=== PATIENT | female | born 1980 | race Caucasian/White ===

== ENCOUNTER 2016-12-02 16:18 | Inpatient (IN) | payer BC ==
[~2016-12-02] VITALS: Ht 167.6 cm; Wt 75.9 kg
[~2016-12-02 16:18] MED LIST: MTR600X PO; PRENTAB26 PO
--- NOTE | 2016-12-02 16:46 | Progress Note ---
Progress Note Date of Service Dec 02, 2016. Progress Note Outpatient Note 36 F [id number] at 37.3 weeks with early onset contractions today. Seen in office and sent here for evaluation. Cervix unchanged at 1.5/50/-3/posterior. urine shows moderate ketones. GBS is negative. FHT Cat 1. Will hydrate orally.
[2016-12-02 18:04] VITALS: Ht 167.6 cm; Wt 75.9 kg
--- NOTE | 2016-12-02 19:13 | Progress Note ---
Progress Note Date of Service Dec 02, 2016. Progress Note No change in cervix. Still 1.5/50/-3/vertex/posterior FHT Cat 1. irregular ctx. Will d/c home not in active labor
[2016-12-02] MEDS ORDERED: LACTATED RINGER'S 1000ML 1,000 ML IV PRN ×2 (21:44→23:58)
[2016-12-02] MEDS ORDERED: LACTATED RINGER'S 1000ML 1,000 ML IV SCH (23:58)
[2016-12-03] MEDS ORDERED: EpHEDrine SULFATE INJ 50 MG/ML AMP ONE (00:12)
[2016-12-03] MEDS ORDERED: BUPIVACAINE 0.25% 30 ML VIAL ONE (00:12)
[2016-12-03] MEDS ORDERED: FENTANYL CITRATE INJ 50 MCG/1 ML 2 ML VIAL ONE (00:13)
[2016-12-03] MEDS ORDERED: FENTANYL 2MCG/ML ROPIV 1.25MG/ML 100ML BAG EPI ONE (00:13)
--- NOTE | 2016-12-03 00:23 | Progress Note ---
Progress Note Date of Service Dec 03, 2016. Progress Note Admit Note 36 F [id number] at 37.4 weeks admitted with onset of labor and SROM clear fluid. GBS negative. FHT Cat 1. Will admit and fluid load for epidural. Anticipate vaginal delivery.
[2016-12-03 00:26] LABS: HEMATOCRIT 33.4 % (37-47); MEAN CORPUSCULAR HEMOGLOBIN 30.9 pg (25-34); MEAN CORPUSCULAR HGB CONC 33.2 g/dl (32-36); MEAN PLATELET VOLUME 10.1 fL (7.4-10.4); PLATELET COUNT 212 K/uL (130-400); RED BLOOD COUNT 3.59 M/uL (4.2-5.4); WHITE BLOOD COUNT 8.55 K/uL (4.8-10.8)
[2016-12-03] MEDS ORDERED: LACTATED RINGER'S 1000ML 500 ML IV PRN (01:08)
[2016-12-03] MEDS ORDERED: NALOXONE HCL INJ 1 MG in SODIUM CHLORIDE 0.9% 1000ML 1,000 ML IV PRN (01:08)
[2016-12-03] MEDS ORDERED: FENTANYL 2MCG/ML ROPIV 1.25MG/ML 100ML BAG EPI PRN (01:15)
[2016-12-03] MEDS ORDERED: NALOXONE HCL INJ 0.4 MG/1 ML VIAL/CARP IV PRN (01:15)
[2016-12-03] MEDS ORDERED: ONDANSETRON INJ 2 MG/ML 2 ML VIAL IV PRN (01:15)
[2016-12-03] MEDS ORDERED: NALBUPHINE HCL INJ 10 MG/ML AMP IV PRN (01:15)
[2016-12-03] MEDS ORDERED: DiphenhydrAMINE HCL 50 MG/ML VIAL IV PRN (01:15)
[2016-12-03] MEDS ORDERED: EpHEDrine SULFATE INJ 50 MG/ML AMP IV PRN (01:15)
[2016-12-03] MEDS ORDERED: OXYTOCIN 30 UNITS/500ML NSS IV ONE (03:59)
[2016-12-03] MEDS ORDERED: LACTATED RINGER'S 1000ML 1,000 ML IV SCH (04:09)
--- NOTE | 2016-12-03 04:09 | Anesthesia Procedure Note ---
Anesthesia Epidural Removal Nt Date & Time Dec 03, 2016 at 04:09 Vital Signs Pain Intensity: 10.0 Notes Mental Status: alert / awake / arousable, participated in evaluation Nausea / Vomiting: adequately controlled Pain: adequately controlled Airway Patency, RR, SpO2: stable & adequate BP & HR: stable & adequate Hydration State: stable & adequate Neuraxial Anesthesia: was administered Anesthetic Complications: no major complications apparent, pt satisfied with anesthetic care Epidural: removed without complications, with tip intact
[2016-12-03] MEDS ORDERED: BUTORPHANOL TARTRATE 1 MG/ML VIAL ONE (04:12)
[2016-12-03] MEDS ORDERED: BENZOCAINE 20% AER SPR 82.5 GM CAN EXT PRN (04:15)
[2016-12-03] MEDS ORDERED: LANOLIN OINT EXT PRN ×2 (04:15)
[2016-12-03] MEDS ORDERED: DIPHTHERIA/TETANUS/PERTUSSIS 0.5 ML SYR/VIAL IM. ONE (04:15)
[2016-12-03] MEDS ORDERED: ACETAMINOPHEN 325 MG TAB PO PRN (04:15)
[2016-12-03] MEDS ORDERED: SUPERCREAM 0.870 % 15GM JAR EXT PRN (04:15)
[2016-12-03] MEDS ORDERED: BUTORPHANOL TARTRATE 1 MG/ML VIAL IV PRN (04:15)
[2016-12-03] MEDS ORDERED: ACETAMINOPHEN/CODEINE 300/30MG TAB PO PRN (04:15)
[2016-12-03] MEDS ORDERED: OXYCODONE/ACETAMINOPHEN 5-325 TAB PO PRN (04:15)
[2016-12-03] MEDS ORDERED: VARICELLA VIRUS VACCINE LIVE 1 VIAL SQ. ONE (04:15)
[2016-12-03] MEDS ORDERED: OXYTOCIN 30 UNITS/500ML NSS IV PRN (04:15)
[2016-12-03] MEDS ORDERED: HYDROCORTISONE ACETATE 25 MG SUPP PR PRN (04:15)
[2016-12-03] MEDS ORDERED: MEASLES, MUMPS & RUBELLA VIRUS VIAL SQ. ONE (04:15)
--- NOTE | 2016-12-03 04:18 | Vaginal Delivery Summary ---
Vaginal Delivery Summary Delivery note Live male over intact perineum RAMONE with tight nuchal cord x2 reduced at delivery. Apgars 4/9 weight 6-12. Cords blood and segment of cord obtained for blood gas. Placenta delivered spontaneously and intact. No tears. EBL 250 ml. Mom stable and baby to nursery for evaluation.
[2016-12-03] MEDS: ACETAMINOPHEN/CODEINE 300/30MG TAB PO PRN ×3 (06:37→18:08)
--- NOTE | 2016-12-03 07:28 | DIAGNOSTIC IMAGING REPORT ---
BIO PROF W/O NST-SINGLE CLINICAL HISTORY: DECREASED MOVEMENT/ NONREACTIVE NST COMPARISON STUDY: ultrasound 11/07/2011. FINDINGS: Transabdominal scanning of the fetus was performed. breathing was demonstrated. However, movement and tone were not demonstrated during the examination. Amniotic fluid index is 13.7 cm. heart rate was 162 bpm. The fetus is in a cephalic presentation. There is an anterior placenta. No evidence for subchorionic hematoma. anatomical survey was not performed for this examination. IMPRESSION: Biophysical profile score is 4 out of 8. heart rate was 162 bpm. Electronically signed by: Shayan Wallace M.D. 12/03/2016 7:26 AM Dictated Date/Time: 12/03/2016 7:24 AM
[2016-12-03] MEDS: DOCUSATE SODIUM 100 MG CAP PO SCH ×2 (09:05→20:00)
[2016-12-03] MEDS: FERROUS SULFATE 325 MG TAB PO SCH (09:05)
[2016-12-03] MEDS: IBUPROFEN 600 MG TAB PO PRN ×2 (09:05→14:51)
[2016-12-03 11:05] VITALS: BP 116/57; PULSE 64; TEMP 36.7
[2016-12-03 15:20] VITALS: BP 109/70; PULSE 67; TEMP 36.5; O2SAT 99
[2016-12-03 19:50] VITALS: BP 113/63; PULSE 76; TEMP 36.4
[2016-12-04] MEDS: IBUPROFEN 600 MG TAB PO PRN ×2 (00:49→07:45)
[2016-12-04 01:05] VITALS: BP 113/73; PULSE 80; TEMP 36.7; O2SAT 99
[2016-12-04 05:15] VITALS: BP 113/73; PULSE 80; TEMP 36.9
[2016-12-04 05:30] LABS: HEMATOCRIT 27.6 % (37-47)
[2016-12-04 07:37] VITALS: BP_SYST 111; BP_SYST 135; BP_DIAS 70; BP_DIAS 82; PULSE 74; TEMP 36.8; O2SAT 97
--- NOTE | 2016-12-04 07:48 | OB/GYN Progress Note ---
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 Subjective conversation w/ patient, physical exam Ambulation: ambulating normally Voiding: no voiding problems Passing Gas: Yes Diet Tolerance: Regular Diet Lochia: Moderate Feeding Type: Breast Feeding Review of Systems Constitutional: No fever, No chills, No sweats, No weight loss, No weakness, No fatigue, No problem reported Respiratory: No cough, No sputum, No wheezing, No shortness of breath, No dyspnea on exertion, No dyspnea at rest, No hemoptysis, No problem reported Cardiac: No chest pain, No orthopnea, No PND, No edema, No claudication, No palpitations, No problem reported Breast: No see HPI, No breast lump, No change in shape, No nipple discharge, No breast pain, No problem reported Abdomen: No pain, No nausea, No vomiting, No diarrhea, No constipation, No GI bleeding, No problem reported Female : No see HPI, No dysuria, No urinary frequency, No hematuria, No incontinence, No abnormal vaginal bleeding, No vaginal discharge, No problem reported Objective Vital Signs Date Time Temp Pulse Resp B/P (MAP) Pulse Ox O2 Delivery O2 Flow Rate FiO2 12/04/16 07:37 36.8 74 20 135/82 (99) 97 Room Air 12/04/16 05:15 36.9 80 20 113/73 (86) Room Air 12/04/16 01:05 36.7 80 18 113/73 (86) Room Air 12/04/16 01:05 99 Room Air 12/03/16 19:50 36.4 76 20 113/63 (80) Room Air 12/03/16 15:20 36.5 67 16 109/70 (83) 99 Room Air 12/03/16 15:20 99 Room Air 12/03/16 11:05 36.7 64 20 116/57 (76) Physical Exam General Appearance: WELL-APPEARING, WD/WN, NO APPARENT DISTRESS Respiratory/Chest: chest non-tender, lungs clear, normal breath sounds, no respiratory distress, no accessory muscle use Cardiovascular: regular rate, rhythm, no edema, no gallop, no JVD, no murmur Abdomen: normal bowel sounds, non tender, soft, no organomegaly, no pulsatile mass Fundus: Firm Extremities: normal range of motion, non-tender, normal inspection, no pedal edema, no calf tenderness Laboratory Results Last 24 Hours Test 12/04/16 05:14 Hemoglobin 9.2 g/dL Hematocrit 27.6 % Assessment and Plan Day Number: 1 Continue Routine Care: VD Day #1 pt doing well No complaints anticipate disch tomorrow
--- NOTE | 2016-12-04 08:49 | OB/GYN Progress Note ---
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 Subjective conversation w/ patient, physical exam Ambulation: ambulating normally Voiding: no voiding problems Passing Gas: Yes Diet Tolerance: Regular Diet Lochia: Moderate Feeding Type: Breast Feeding Review of Systems Constitutional: No fever, No chills, No sweats, No weight loss, No weakness, No fatigue, No problem reported Respiratory: No cough, No sputum, No wheezing, No shortness of breath, No dyspnea on exertion, No dyspnea at rest, No hemoptysis, No problem reported Cardiac: No chest pain, No orthopnea, No PND, No edema, No claudication, No palpitations, No problem reported Breast: No see HPI, No breast lump, No change in shape, No nipple discharge, No breast pain, No problem reported Abdomen: No pain, No nausea, No vomiting, No diarrhea, No constipation, No GI bleeding, No problem reported Female : No see HPI, No dysuria, No urinary frequency, No hematuria, No incontinence, No abnormal vaginal bleeding, No vaginal discharge, No problem reported Objective Vital Signs Date Time Temp Pulse Resp B/P (MAP) Pulse Ox O2 Delivery O2 Flow Rate FiO2 12/04/16 07:45 Room Air 12/04/16 07:37 36.8 74 20 135/82 (99) 97 Room Air 12/04/16 05:15 36.9 80 20 113/73 (86) Room Air 12/04/16 01:05 36.7 80 18 113/73 (86) Room Air 12/04/16 01:05 99 Room Air 12/03/16 19:50 36.4 76 20 113/63 (80) Room Air 12/03/16 15:20 36.5 67 16 109/70 (83) 99 Room Air 12/03/16 15:20 99 Room Air 12/03/16 11:05 36.7 64 20 116/57 (76) Physical Exam General Appearance: WELL-APPEARING, WD/WN, NO APPARENT DISTRESS, uncomfortable Respiratory/Chest: chest non-tender, lungs clear, normal breath sounds, no respiratory distress, no accessory muscle use Cardiovascular: regular rate, rhythm, no edema, no gallop, no JVD, no murmur Abdomen: normal bowel sounds, non tender, soft, no organomegaly, no pulsatile mass Fundus: Firm Extremities: normal range of motion, non-tender, normal inspection, no pedal edema, no calf tenderness Laboratory Results Last 24 Hours Test 12/04/16 05:14 Hemoglobin 9.2 g/dL Hematocrit 27.6 % Assessment and Plan Day Number: 1 Continue Routine Care: VD day #1 Pt doing well is been transfered to [facility] Mom wishes to be discharged today
[2016-12-04] MEDS ORDERED: MTR600X PO (08:50)
--- NOTE | 2016-12-04 08:51 | Discharge Instructions ---
Discharge Instructions Date of Service Dec 04, 2016. Admission Reason for Admission: LABOR Discharge Discharge Diagnosis / Problem: Discharge Goals Goal(s): Routine recovery after delivery Activity Recommendations Activity Limitations: resume your previous activity . Instructions / Follow-Up Instructions / Follow-Up ACTIVITY RECOMMENDATIONS: * Gradual return to full activity over the next 2-3 weeks. * No lifting - nothing heavier than baby over the next 2-3 weeks. * Do not engage in vigorous exercise, sexual activity or sports until cleared by your physician. * Do not drive or operate any motorized equipment until cleared by your physician. * You may shower/bathe daily. BREAST CARE: If you are not breast feeding: * Wear a supportive bra 24 hours a day for one to two weeks. * Avoid stimulating your breasts and nipples as much as possible during the first few weeks after delivery. * When taking a shower, have the warm water hit your back, not breasts. * When your breasts feel full, apply ice packs. Usually three to four times a day helps ease the discomfort. * Take a mild pain medication (Tylenol/Motrin) when you are uncomfortable. If breast feeding: * Use breast milk to lubricate nipples. Lansinoh cream may be used for sore nipples. You do not need to remove cream prior to breast feeding. If using a different brand of cream, check the label for directions regarding removal of cream prior to nursing. * Wear a supportive bra. * If having problems with breasts or breast feeding, call a hospice consultant or your health care provider. EPISIOTOMY CARE: After delivery, if you have an episiotomy (stitches), the following steps will ease discomfort and aid healing. * For the first 24 hours after delivery, place ice packs next to your episiotomy to help reduce swelling. * After the first 24 hour-period, sitz baths, either portable or in the tub, are suggested. A shower with a shower arm sprayed over the episiotomy may be comforting. * Nciole care should be done after each voiding and bowel movement. Squirt warm water from a plastic bottle over the perineum (region of the body between the anus and urinary opening) and pat dry. * Use Dermoplast to ease discomfort. Shake container. [place] directly over the episiotomy. * Place a Tucks on a clean sanitary pad next to your episiotomy. OVER THE COUNTER MEDICATION: * For discomfort or pain, you may use Acetaminophen (Tylenol), Ibuprofen (Advil ), or Naproxen (Aleve) following the package directions. * For constipation you may use Colace following the package directions. SPECIAL CARE INSTRUCTIONS: When you are discharged from the hospital, it is important for you to follow the instructions listed below: * During the first week at home, you should be able to care for yourself and your baby. In addition, the usual light household activities are encouraged. * Limit your activities to the way you feel. Do not try to clean the house or move furniture. Be sensible. * If you actively engage in sports and have done so up until the time of your delivery, you may resume these activities as soon as you feel able. This may take up to one month or even longer. Use good judgment. * Continue to take your vitamins for at least six weeks after the of your baby. * Your diet need not be limited unless you were on a special diet before your delivery. Breast-feeding mothers need around 2500 calories per day and at least 64-80 ounces of fluid per day (8 to 10 glasses). * You should eat foods from the four major food groups. Crash diets or fad diets are to be avoided. Eating lean meats, fresh fruits and vegetables, low-fat dairy products, high fiber foods and a regular exercise program, will help you get back to your pre- weight without putting your health at risk. * Constipation is sometimes a problem after delivery. Take a mild laxative as needed. If breast feeding, Milk of Magnesia is acceptable to use. You may use a suppository or Fleets enema if no episiotomy. * A daily shower or tub bath is suggested. Be sure to thoroughly and gently dry the perineum. * A bloody vaginal discharge will usually continue until around four weeks post . A small amount of bleeding may continue for as long as six weeks. Vaginal discharge changes from the bright red bleeding after delivery to pink then brownish and finally yellowish-pink before becoming white and disappearing. * Bleeding may increase with activity. Your first period may come in 4-8 weeks. If you are breast feeding, your period may be delayed even longer. * [place] (sex) can begin whenever both you and your partner feel comfortable and do not have any form of genital infection. It is recommended that you wait until after your return appointment and discuss with your physician. If you have questions, please talk to your health care practitioner. A condom should be used to prevent infection and . * Foreplay, gentle intercourse and lubrication is very important the first several times to prevent pain. A water-based lubricant such as K-Y jelly or Astroglide may be used. * Tampons may be used six weeks after delivery. * Douching should be avoided for 6 weeks after delivery. * If you have RH negative blood and your baby is RH positive, you will receive RHOGAM by injection prior to discharge. The nurse will give you a card to keep with you that has the date and place that you received RHOGAM after delivery. * During your care, you had a Rubella screen done to check for the presence of rubella antibodies in your blood. If your test was negative, you will receive a Rubella vaccine prior to discharge. This vaccine may cause a fever, soreness at the injection site and flu-like symptoms. If these symptoms persist, notify your health care practitioner. is not advised for three months after a Rubella vaccine. There is a higher chance of having a baby with defects if conceived within three months of getting the vaccine. * If you were discharged 24 hours from delivery or before 48 hours: Visiting nurses will come to your home 48 hours after discharge to assess you and your baby. The visiting nurse will meet with you while you are in the hospital to arrange a time and get directions to your home. * Verbalizes understanding of car seat law as reviewed with patient nursing. * Car Seat hand-out given and reviewed with patient by nursing. * Shaken baby information reviewed with patient by nursing. Call you doctor if: * Heavy bleeding (saturating several pads an hour) or passing clots the size of your fist. * A fever >101 degrees F (38.3 degrees C) on two occasions four hours apart and/or chills. * Unusual pain in the pelvic or vaginal areas. * "Baby Blues" lasting longer than two weeks. If you have any questions or concerns, call your health care practitioner at . FOLLOW-UP VISIT: * Please call the office at to schedule a 6 week examination. It is important you keep this appointment. * It is important for you to make arrangements for either yearly or twice yearly check-ups thereafter. Current Hospital Diet Patient's current hospital diet: Regular OB Diet Discharge Diet Recommended Diet: Regular Diet Pending Studies Studies pending at discharge: no Medical Emergencies . Who to Call and When: Medical Emergencies: If at any time you feel your situation is an emergency, please call 911 immediately. . Non-Emergent Contact Non-Emergency issues call your: Specialist . . "Provider Documentation" section prepared by Jens Jensen. . VTE Core Measure Inpt VTE Proph given/why not?: Treatment not indicated
[2016-12-04] MEDS: DOCUSATE SODIUM 100 MG CAP PO SCH (09:05)
[2016-12-04] MEDS: FERROUS SULFATE 325 MG TAB PO SCH (09:05)
[2016-12-04 11:00] VITALS: BP_DIAS 82; PULSE 74; TEMP 36.8
[2016-12-04] MEDS ORDERED: BISACODYL 5 MG TABEC PO SCH (20:00)
[2016-12-05] MEDS ORDERED: BISACODYL 10 MG SUPP PR PRN (07:00)
[2016-12-09 10:22] LABS: HERPES SIMPLEX CULT SOURCE OTHER-MOUTH; HERPES SIMPLEX VIRUS CULT NOT ISOLATED (NOT ISOLATED)
== END 2016-12-04 12:00 | disposition home or self-care (01) | DRG 775 ==
LOC: C.LD 16:18 → C.OPB 16:18 → C.LD 12-03 → C.OPB 12-03 → C.OBG 12-03 12:02
PROVIDERS: ADMIT Obstetrics & Gynecology; ATTEND Obstetrics & Gynecology
PROC: 10E0XZZ Delivery of Products of Conception, External Approach (ICD-10-PCS; principal; 2016-12-03)
DX: O69.1XX0 Labor and delivery complicated by cord around neck, with compression, not applicable or unspecified (principal); Z37.0 Single live birth; Z3A.37 37 weeks gestation of pregnancy

== ENCOUNTER 2019-11-23 11:22 | Inpatient (IN) ==
[2019-11-23] MEDS ORDERED: OXYTOCIN 30 UNITS/500 ML BAG IV PRN ×2 (23:11)
--- NOTE | 2019-11-23 23:28 | History & Physical Report ---
Date of Service November 23, 2019 Assessment & Plan (1) Supervision of elderly multigravida: Admit, will start pitocin for regular ctx pattern. OK for epidural. Admission and Anticipated Discharge Date Admission Date: November 23, 2019 History of Present Illness Chief Complaint: contractions Primary Care Provider: Jian Jerry DO 38yo @ 41 10/08, presents with contractions. Q 2-8 min. No ROM, no bleeding. + movement. complicated by AMA, hypothyroidism, Rh negative, previous child with CP (had been scheduled for elective induction and she decided to cancel). Allergies Allergy/AdvReac Type Severity Reaction Status Date / Time cat dander Allergy Mild HIVES Verified 11/23/19 22:46 ragweed pollen Allergy Mild HIVES Verified 11/23/19 22:46 pollen extracts Allergy Unknown HIVES Verified 11/23/19 22:46 Home Medications Home Medications Medication Instructions Recorded Confirmed Type levothyroxine 75 mcg tablet 75 mcg PO DAILY 04/20/19 11/23/19 History prenat.vits,carlos eduardo,[id number] 1 tab PO DAILY 04/20/19 11/23/19 History magnesium 250 mg PO DAILY 11/23/19 11/23/19 History Patient History Medical History Jesica's thyroiditis Stable History of anesthesia complications Patient reports that she has had 4 previous epidurals and only one worked: Labor anesthesia: 12/04/16: CSE at L3-L4 at [facility] Labor anesthesia: 11/06/14: Epidural at L3-L4 at [facility] Labor anesthesia: 12/09/12: CSE at L3-L4at [facility] Surgical History S/P appendectomy S/P wisdom tooth extraction Family History Grandmother (Maternal) No problems noted. Grandfather (Maternal) Diabetes Grandmother (Paternal) Diabetes Grandfather (Paternal) Diabetes Social History Smoking Status: Never smoker Hx Alcohol Use: No Hx Substance Use: No Preferred Language: [place] Communication Ability: Effective Data Developer Required: No Beliefs That Will Affect Care: None marital status: marital status details: Beto Cobos (38) [phone] Current Living Situation: Spouse and Family Current Living Situation Comment: lives with spouse and children, no pets. 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 [employer] Other Information That Helps Us Care for You: No Feels Safe at Home: Yes Safety Concerns: Feels Safe At This Time Review of Systems All systems reviewed & are unremarkable except as noted in HPI & below Physical Exam Physical Exam: FHT Cat 1 [place] Q 2-6 SVE 1-2/90/-2 Constitutional: WD/WN, vitals as above Respiratory: normal respiratory effort, lungs clear to auscultation no respiratory distress Cardiovascular: Rate/Rhythm: regular rate and regular rhythm Gastrointestinal (Abdomen): Inspection/Auscultation: abdomen normal to inspection Percussion/Palpation: abdomen soft; abdomen nontender Gravid. No s/s chorio or abruption. Skin: no rashes, warm and dry Psychiatric: A+Ox3, euthymic affect Results & Data ([facility]) Vital Signs (Past 12 Hours) Vital Signs Pulse BP 11/23/19 22:43 77 127/86 Coding Level of Care Code None Diagnoses Supervision of elderly multigravida O09.529
[2019-11-23 23:41] LABS: Hematocrit (blood only) 36.8 % (37-47); Hemoglobin 12.9 g/dL (12.0-16.0); Mean Corpuscular Hemoglobin 33.1 pg (25-34); Mean Corpuscular Volume 94.4 fL (80-100); Mean Platelet Volume 11.1 fL (7.4-10.4); Platelet Count 177 K/uL (130-400); RDW Coefficient of Variation 11.9 % (11.5-14.5); RDW Standard Deviation 40.2 fL (36.4-46.3); White Blood Count 7.21 K/uL (4.8-10.8)
[2019-11-23 23:42] LABS: Mean Corpuscular Hgb Conc 35.1 g/dL (32-36)
[2019-11-23] MEDS: LACTATED RINGER'S 1,000 ML IV PRN (23:43)
--- NOTE | 2019-11-23 23:45 | Anesthesiology Consultation ---
Date of Service November 23, 2019 Assessment & Plan (1) Encounter for pre-operative examination: Chart Review Chart Review: Patient NOT seen in Pre Admission Testing and Acceptable Risk for Labor Epidural Consults Requested none ASA ASA2 Proposed Anesthesia Anesthesia Type: Labor Epidural Risk / Benefits Reviewed With: PT / POA / Parent / Guardian, Accepts Plan and Informed Consent Obtained History Height/Weight Height: 5 ft 6 in Weight: 75.75 kg Allergies Allergy/AdvReac Type Severity Reaction Status Date / Time cat dander Allergy Mild HIVES Verified 11/23/19 22:46 ragweed pollen Allergy Mild HIVES Verified 11/23/19 22:46 pollen extracts Allergy Unknown HIVES Verified 11/23/19 22:46 Medications Home Medications Medication Instructions Recorded Confirmed Last Taken levothyroxine 75 mcg tablet 75 mcg PO DAILY 04/20/19 11/23/19 11/23/19 07:00 prenat.vits,carlos eduardo,[id number] 1 tab PO DAILY 04/20/19 11/23/19 11/23/19 08:00 magnesium 250 mg PO DAILY 11/23/19 11/23/19 11/22/19 22:00 Active Medications Generic Name Dose Route Start Last Admin Trade Name Freq PRN Reason Stop Dose Admin Lactated Ringer's 1,000 mls @ 125 mls/hr 11/23/19 23:11 11/24/19 00:26 Lr IV 11/25/19 23:10 125 mls/hr .Q8H PRN Infusion L&D Protocol Protocol NPO Date Last Intake of Fluids: 11/23/19 Time Last Intake of Fluids: 23:42 Date Last Intake of Solids: 11/23/19 Time Last Intake of Solids: 17:00 Past Medical History Medical History Jesica's thyroiditis Stable History of anesthesia complications Patient reports that she has had 4 previous epidurals and only one worked: Labor anesthesia: 12/04/16: CSE at L3[facility]L4 at [facility] Labor anesthesia: 11/06/14: Epidural at L3-L4 at [facility] Labor anesthesia: 12/09/12: CSE at L3-L4at [facility] Exercise / Class Metabolic Activity II 4-5 Yardwork/Stairs/Walk up hill Past Family History Family History Grandmother (Maternal) No problems noted. Grandfather (Maternal) Diabetes Grandmother (Paternal) Diabetes Grandfather (Paternal) Diabetes Past Surgical History Surgical History S/P appendectomy S/P wisdom tooth extraction Past Anesthesia History Other difficulty with prior epidurals, see documentation in PAT note History of PONV No Hx of PONV Social History Smoking Status: Never smoker Hx Alcohol Use: No Hx Substance Use: No Review of Systems Patient denies history of abnormal bleeding or bleeding disorder. Patient denies active use of anticoagulants other than low dose aspirin. Patient denies numbness, tingling or weakness in lower extremities. Negative for chest pain or shortness of breath. Physical Exam Vital Signs Last Vital Signs Pulse 77 11/23/19 22:43 BP 127/86 11/23/19 22:43 Constitutional not obese (Gravid uterus) ENMT Mouth: no TMJ abnormality and oral opening not small Thyromental Distance: > or= 3.5 Finger Breadths Mallampati Class: II Neck normal visual inspection; neck extension not limited Respiratory normal respiratory effort Auscultation: lungs clear to auscultation bilaterally Cardiovascular Rate/Rhythm: regular rate and regular rhythm Heart Sounds: no murmur Neurologic moves all extremities Motor/Sensory: no sensory deficit Psychiatric Orientation: alert and oriented x 3 Testing Laboratory Results Labs were reviewed and were appropriate
[2019-11-23] MEDS ORDERED: ePHEDrine sulfate 50 MG/ML AMP ONE (23:53)
[2019-11-23] MEDS ORDERED: fentaNYL citrate 100 MCG/2 ML VIAL ONE (23:53)
[2019-11-23] MEDS ORDERED: fentaNYL 2MCG/ML ROPIV 1.25MG/ML 100 ML BAG EPI ONE (23:53)
[2019-11-23] MEDS ORDERED: BUPIVACAINE 0.25% 30 ML VIAL ONE (23:53)
[2019-11-24] MEDS ORDERED: NALOXONE HCL 1 MG in SODIUM CHLORIDE 0.9% 1000ML 1,000 ML IV PRN (01:03)
[2019-11-24] MEDS ORDERED: NALOXONE HCL 0.4 MG/1 ML VIAL/CARP IV PRN (01:03)
[2019-11-24] MEDS ORDERED: ONDANSETRON INJ 2 MG/ML 2 ML VIAL IV PRN (01:03)
[2019-11-24] MEDS ORDERED: fentaNYL 2MCG/ML ROPIV 1.25MG/ML 100 ML BAG EPI PRN (01:03)
[2019-11-24] MEDS ORDERED: ePHEDrine sulfate 50 MG/ML AMP IV PRN (01:03)
[2019-11-24] MEDS ORDERED: DiphenhydrAMINE HCL 50 MG/ML VIAL IV PRN (01:03)
[2019-11-24] MEDS: LACTATED RINGER'S 1,000 ML IV PRN (02:00)
[2019-11-24] MEDS ORDERED: ACETAMINOPHEN 325 MG TAB PO PRN (04:28)
[2019-11-24] MEDS ORDERED: DIPHTHERIA/TETANUS/PERTUSSIS 0.5 ML SYR/VIAL IM ONE (04:28)
[2019-11-24] MEDS ORDERED: bisacodyL 10 MG SUPP PR PRN (04:28)
[2019-11-24] MEDS ORDERED: OXYTOCIN 30 UNITS/500 ML BAG IV PRN (04:28)
[2019-11-24] MEDS ORDERED: SUPERCREAM 0.870% 15 GM JAR EXT PRN (04:28)
[2019-11-24] MEDS ORDERED: BENZOCAINE 20% AER SPR 82.5 GM CAN EXT PRN (04:28)
[2019-11-24] MEDS ORDERED: HYDROCORTISONE ACETATE 25 MG SUPP PR PRN (04:28)
[2019-11-24] MEDS ORDERED: OXYCODONE/ACETAMINOPHEN 5mg/325mg TAB PO PRN (04:28)
--- NOTE | 2019-11-24 04:31 | Delivery Summary ---
Vaginal Delivery Summary Date of Service November 24, 2019 Vaginal Delivery Summary Vaginal Delivery Summary: Pre-delivery diagnoses: 38yo @ 42 0/7, spontaneous labor, AMA, hypothyroidism, prior delivery with CP Post-delivery diagnoses: same Procedure: spontaneous vaginal delivery Surgeon: Carrie Andrade DO Complications: none Findings: Viable male . Apgars: 7/9. Weight pending, please see nursery records. Estimated blood loss: 200ml Description of delivery: The patient progressed to complete with epidural anesthesia. She then began to push. She spontaneously vaginally delivered a viable from the cephalic presentation. The head delivered in ROP position. Nuchal cord x 2, since baby was coming quickly, decision made to deliver through rather than try to stop delivery as it was happening to try to cut. The cord was not loose enough to retract over baby's head. The anterior shoulder delivered, followed by the posterior shoulder, followed by the body. The baby was placed on mother's abdomen and a spontaneous cry was heard. The cord was doubly clamped and cut and the baby was handed off to the waiting nursery team. A segment was retained for cord gases. Cord blood was obtained. The placenta was delivered spontaneously intact with a 3-vessel cord. The uterus and vagina were swept of clots and debris. IV pitocin was given. The uterus became firm. The cervix, vagina, and perineum were inspected and no lacerations were noted. Excellent hemostasis was observed. The mother and baby are recovering in stable and good condition in the room. Sponge and instrument counts were correct x 2. Carrie Andrade DO [facility] Vaginal Delivery Charge Vaginal Delivery Codes: 90293 global code for the antepartum, delivery, and post-
[2019-11-24 05:37] LABS: Base Excess Cord Venous Blood -3.3 mEq/L (-7.7-1.9); Cord Venous Blood HCO3 23 mmol/L (18.4-26.8); Cord Venous Blood PCO2 45 mmHg (30.4-57.2); Cord Venous Blood PO2 39 mmHg (14.1-43.3); Cord Venous Blood pH 7.32 (7.20-7.44)
[2019-11-24 05:38] LABS: Base Excess Cord Arterial Bld -4.5 mEq/L (-9-1.8); CO2 Cord Arterial Blood 79 mmHg (39.1-73.5); HCO3 Cord Arterial Blood 26 mmol/L (19.7-28.5); Oxygen Sat Cord Arterial Blood < 60.0 % (<60); PO2 Cord Arterial Blood 13 mmHg (4.1-31.7); pH Cord Arterial Blood 7.14 (7.1-7.38)
--- NOTE | 2019-11-24 07:24 | Anesthesia Procedure Note ---
Date of Service November 24, 2019 Anesthesia Post Epidural Note Vital Signs Vital Signs: Temp Pulse Resp BP Pulse Ox 36.9 C 69 20 112/69 97 11/24/19 05:40 11/24/19 05:40 11/24/19 05:40 11/24/19 05:40 11/24/19 05:40 Pain Intensity Bilateral Abdomen: Pain Intensity: 2 Notes Mental Status: alert / awake / arousable and participated in evaluation Nausea / Vomiting: adequately controlled Pain: adequately controlled Airway Patency, RR, SpO2: stable & adequate BP & HR: stable & adequate Hydration State: stable & adequate Neuraxial Anesthesia: was administered and sensory block resolved Anesthetic Complications: no major complications apparent and Pt Satisfied with anesthetic care Epidural: Removed without complications and With tip intact Notes: Epidural site clean, dry and intact. No signs of edema, erythema or bruising at insertion site. Pt instructed to request anesthesia if she has residual lower extremity numbness or if she develops lower extremity pain or weakness, back pain or headache.
[2019-11-24] MEDS: LEVOTHYROXINE SODIUM 75 MCG TABLET PO SCH (07:33)
[2019-11-24] MEDS: DOCUSATE SODIUM 100 MG CAP PO SCH ×2 (08:46→20:28)
[2019-11-24] MEDS: MAGNESIUM OXIDE 400 MG TAB PO SCH (08:46)
[2019-11-24] MEDS: PRENATAL VITAMIN 1 TAB PO SCH (08:46)
[2019-11-24] MEDS ORDERED: NON-FORMULARY MEDICATION (Prenat.Vits,Cal,Min-Iron-Folic 1 TAB) PO SCH (09:00)
[2019-11-24] MEDS: IBUPROFEN 600 MG TAB PO PRN ×3 (09:24→20:31)
[2019-11-25] MEDS: IBUPROFEN 600 MG TAB PO PRN ×2 (02:02→12:37)
[2019-11-25] MEDS: LEVOTHYROXINE SODIUM 75 MCG TABLET PO SCH (06:03)
[2019-11-25 06:04] LABS: Hemoglobin 12.9 g/dL (12.0-16.0)
--- NOTE | 2019-11-25 06:04 | Obstetrical Progress Note ---
Date of Service <Brigido Gutierrez MD - Last Filed: 11/25/19 06:39> November 25, 2019 Assessment & Plan <Brigido Gutierrez MD - Last Filed: 11/25/19 06:39> (1) : - Feels well today. Eating well, voiding well, ambulating well. - Pain well controlled with analgesics. - Routine care - After discharge will have 6 week followup. Subjective <Brigido Gutierrez MD - Last Filed: 11/25/19 06:39> Ena is a 38 y/o female ; PPD #1 following spontaneous vaginal delivery at 40+ weeks; doing well this morning; light abdominal cramping & 3/10 pain well managed on analgesics; voiding well; tolerating meals overnight and able to ambulate some; some persistent lochia with some improvement this morning. Feels ready to go home today. Review of Systems Constitutional: denies fever, chills, sweat, headache Respiratory: denies shortness of breath, difficulty breathing Cardiac: denies chest pain, palpitations, chest pressure Breast: denies breast pain : denies dysuria Physical Exam <Brigido Gutierrez MD - Last Filed: 11/25/19 06:39> General: Alert, oriented. No acute distress. Cardiac: Regular rate and rhythm, no murmurs/rubs/gallops. Respiratory: Clear to auscultation bilaterally a/p, no wheezes/rales/rhonchi. No increased work of breathing. Symmetrical chest rise. No respiratory distress. Abdomen: Soft, nontender, nondistended. Bowel sounds present. Uterus: Uterine fundus firm, palpable 1cm below umbilicus. Lower Extremities: No lower extremity edema or swelling. No deep calf pain. Rina's negative bilaterally. Results & Data <Brigido Gutierrez MD - Last Filed: 11/25/19 06:39> Vital Signs (Past 12 Hours) Vital Signs Temp Pulse Resp BP Pulse Ox 11/25/19 03:00 36.6 C 60 16 132/82 99 11/24/19 23:00 36.8 C 69 16 113/71 97 11/24/19 19:40 36.6 C 73 16 144/84 H 100 <Abiola Glez MD, FACOG - Last Filed: 11/25/19 07:50> Co-Signing Physician Notes Resident Physician Supervision Note: I was present with Dr. Liriano during the history and exam. I discussed the case with the resident and agree with the findings and plan as documented in the note. Any exceptions or clarifications are listed here: doing well, ready to go home, needs rhophylac, , instructions reviewed, f/u 6wk pp check. fundus 2down firm, nt. Documented By: Abiola Glez MD, FACOG Resident Activity Tracking <Brigido Gtuierrez MD - Last Filed: 11/25/19 06:39> Resident Involvement: Resident Care Provided Care Provided: OB Delivery
[2019-11-25] MEDS: DOCUSATE SODIUM 100 MG CAP PO SCH (08:41)
[2019-11-25] MEDS: PRENATAL VITAMIN 1 TAB PO SCH (08:41)
[2019-11-25] MEDS: MAGNESIUM OXIDE 400 MG TAB PO SCH (08:41)
[2019-11-25] MEDS ORDERED: bisacodyL 5 MG TABEC PO SCH (20:00)
== END 2019-11-25 16:20 | disposition home or self-care (01) | DRG 807 ==
LOC: 4S1 22:28 → 4S2 11-24 05:41